=== PATIENT | male | born 1970 | race Caucasian/White ===

== ENCOUNTER 2020-04-24 08:30 | Emergency (ER) | payer OTHER ==
[2020-04-24 08:46] VITALS: BP 146/83; PULSE 87; TEMP 97.8; BMI 32.0
--- OUTSIDE RECORDS SUMMARY | 2020-04-24 08:53 | XMS ---
:1970 Author Organization [facility] Care Team Providers Name Role Phone Lennie Burgess Unavailable [phone] Solange Burgess Unavailable [phone] Rupert Unavailable [phone] Manning Unavailable Unavailable Manning Unavailable Unavailable Manning Unavailable Unavailable Manning Unavailable Unavailable Manning Unavailable Unavailable Manning Unavailable Unavailable Manning Unavailable Unavailable Manning Unavailable Unavailable Manning Unavailable Unavailable Manning Unavailable Unavailable ANDRES CONNER Unavailable Unavailable Ubayawardena Unavailable Unavailable Ubayawardena Unavailable Unavailable Ubayawardena Unavailable Unavailable Ubayawardena Unavailable Unavailable Ubayawardena Unavailable Unavailable Manning Unavailable Unavailable Manning Unavailable Unavailable Manning Unavailable Unavailable Manning Unavailable Unavailable Manning Unavailable Unavailable Manning Unavailable Unavailable Manning Unavailable Unavailable Manning Unavailable Unavailable Manning Unavailable Unavailable Manning Unavailable Unavailable Ringstad Unavailable Unavailable Ringstad Unavailable Unavailable Ringstad Unavailable Unavailable Ringstad Unavailable Unavailable Ringstad Unavailable Unavailable Ringstad Unavailable Unavailable Ringstad Unavailable Unavailable Ringstad Unavailable Unavailable Ringstad Unavailable Unavailable Ringstad Unavailable Unavailable Ringstad Unavailable Unavailable Carrillo Unavailable [phone] Carrillo Unavailable [phone] Re-disclosure Warning The records that you are about to access may contain information from federally- assisted alcohol or drug abuse programs. If such information is present, then the following federally mandated warning applies: This information has been disclosed to you from records protected by federal confidentiality rules (42 CFR part 2). The federal rules prohibit you from making any further disclosure of this information unless further disclosure is expressly permitted by the written consent of the person to whom it pertains or as otherwise permitted by 42 CFR part 2. A general authorization for the release of medical or other information is NOT sufficient for this purpose. The Federal rules restrict any use of the information to criminally investigate or prosecute any alcohol or drug abuse patient.The records that you are about to access may contain highly sensitive health information, the redisclosure of which is protected by Article 27-F of the [facility] Public Health law. If you continue you may haveaccess to information: Regarding HIV / AIDS; Provided by facilities licensed or operated by the [facility] Office of Mental Health; or Provided by the [facility] Office for People With Developmental Disabilities. If such information is present, then the following [facility] mandated warning applies: This information has been disclosed to you from confidential records which are protected by state law. State law prohibits you from making any further disclosure of this information without the specific written consent of the person to whom it pertains, or as otherwise permitted by law. Any unauthorized further disclosure in violation of state law may result in a fine or chcf sentence or both. A general authorization for the release of medical or other information is NOT sufficient authorization for further disclosure. Allergies and Adverse Reactions Type Description Substance Reaction Status Data Source(s ) Propensity to Propensity to Propensity to NEXTG EN ([facility] adverse reactions adverse reactions adverse reactions [facility] (disorder) (disorder) (disorder) Center) Family History Family Member Family Member Family Member Date of Description Data Source(s) Name Gender Status Status Unknown Male Diagnosis 02/21/2012 NEXTGEN ( 12:00:00 AM [facility]ost ne EDT Center) Encounters Encounter Providers Location Date Indications Data Source(s ) Outpatient Attender: CONNER Callaway 05/18/2019 [facility] 06:23[facility]00 Medical Center MINALAdmitter: PM EDT [facility] MINNINIReferrer: CONNER PRIETO [facility] ([facility] /OUT[facility]IENT [facility] 06:23:00 [facility] VISIT, EST PM EDT - Center) 05/18/2019 06:23:00 PM EDT Outpatient 05/18/2019 [facility] 02:23:00 Medical Center PM EDT Outpatient 05/18/2019 [facility] 12:00:00 Medical Center AM EDT Outpatient Attender: Nu Callaway 05/01/2019 [facility] eph VelezAdmitter: 09:57:00 Medical Ce nter Nu AM EDT VelezReferrer: Nu Manning OutpatientOFFICE Attender: [facility] 05/01/2019 NEXTGEN ([facility] 09:57:00 Shawn Medic al VISIT, EST AM EDT - Center) 05/01/2019 09:57:00 AM EDT Outpatient 05/01/2019 [facility] 09:37:00 Medical Center AM EDT Outpatient 05/01/2019 [facility] 12:00:00 Medical Center AM EDT Attender: [facility] 04/28/2019 NEXT EN ([facility] 10:45:00 Shawn Medica l AM EDT - Center) 04/28/2019 10:45:00 AM EDT Attender: [facility] 12/07/2016 NEXTG EN ([facility] 01:31:00 Shawn Medi giles PM EDT - Center) 12/07/2016 01:31:00 PM EDT Attender: [facility] 11/23/2016 NEXTGEN ([facility] 01:19:00 Shawn Medica l PM EDT - Center) 11/23/2016 01:19:00 PM EDT Attender: [facility] 07/08/2013 NEXTGE N ([facility] 05:52:00 Shawn Medic al PM EST - Center) 07/08/2013 05:52:00 PM EST Attender: [facility] 01/05/2013 NEXTGE N ([facility] 03:28:00 [facility] PM EDT - Center) 01/05/2013 03:28:00 PM EDT Attender: [facility] 12/04/2012 NEXTGE N ([facility] 09:10:00 [facility] AM EDT - Center) 12/04/2012 09:10:00 AM EDT Attender: [facility] 11/27/2012 NEXTGE N ([facility] 10:01:00 Shawn [facility]ica l AM EDT - Center) 11/27/2012 10:01:00 AM EDT Attender: [facility] 03/06/2012 NEXTGE N ([facility] 09:32:00 [facility] l AM EDT - Center) 03/06/2012 09:32:00 [facility] NEX [facility]EN ([facility] 08:44:00 Shawn Medica l AM EDT - Center) 02/21/2012 08:44:00 AM EDT Immunizations Vaccine Date Status Description Data Source(s) New in 2011. IIV4 05/01/2019 completed Influenza, Injectable, NEXTGEN ([facility] 12:00:00 AM EDT Quadrivalent [facility]) Source: New Immunization Record New in 2011. 11/23/2016 12:00:00 completed Influenza virus NEXTG EN ([facility] IIV4 AM EDT vaccine, injectable, [facility] Medical quadrivalent, split Center) virus, preservative free, 3 years or older Fluarix Quad [id number] Source: New Immunization Record As of March 1999, a 07/08/2013 12:00:00 completed Hep B (bud lt) NEXTGEN ([facility] 2-dose hepatitis B AM EST Shawn edical schedule for Center) adolescents (11-15 year olds) was FDA approved for Merck's Recombivax HB adult formulation. Use code 43 for the 2-dose. This code should be used for any use of standard adult formulation of hepatitis B vaccine. Source: New Immunization Record IIV3. This vaccine 07/08/2013 12:00:00 completed flu (split) NE XTGEN ([facility] code is one of two AM EST preservative free, 3 [facility] which replace CVX yrs or older Center) 15, influenza, split virus. Source: New Immunization Record As of March 1999, a 01/05/2013 12:00:00 completed Hep B (bud lt) NEXTGEN ([facility] 2-dose hepatitis B AM EDT Shawn edical schedule for Center) adolescents (11-15 year olds) was FDA approved for Merck's Recombivax HB adult formulation. Use code 43 for the 2-dose. This code should be used for any use of standard adult formulation of hepatitis B vaccine. Source: New Immunization Record As of March 1999, a 12/04/2012 12:00:00 completed Hep B (bud lt) NEXTGEN ( 2-dose hepatitis B AM EDT [facility] [place]) adolescents (11-15 year olds) was FDA approved for Merck's Recombivax HB adult formulation. Use code 43 for the 2-dose. This code should be used for any use of standard adult formulation of hepatitis B vaccine. Source: New Immunization Record Tdap 02/21/2012 12:00:00 AM EDT completed Tdap N EXTGEN ([facility]) Source: New Immunization Record Medications Medication Brand Start Product Dose Route [facility] Indications Reaction Description Data Name Date Form Instructions Instructions Source(s) terbinafine terbin .00 ORAL active take 1 NEXTGEN 250 MG Oral afine 2017 {tbl} tablet by ( Tablet HCl 12:00: oral route Mehrdad chatterjee terbinafine 250 mg 00 AM every day Medical HCl 250 mg tablet EDT [place]) tablet Insurance Providers Payer name Policy type Policy ID Covered Covered green party's Policy P sho / Coverage green party ID relationship to Mendez Inf ormation type mendez MEDICAID [id number] SP [id number] O 01 Problems, Conditions, and Diagnoses Code Display Name Description Problem Type Effective Data Sour ce(s) Dates [id number] External External Problem 03/06/2012 NEXTGEN ( hemorrhoids hemorrhoids 12:00:00 AM [facility]) Z71.89 Other specified OTHER SPECIFIED Diagnosis 05/18/2019 [facility] counseling COUNSELING 06:23:00 PM Medical [facility] EDT Z68.30 Body mass index BODY MASS INDEX Diagnosis 05/18/2019 H[facility]io Escobar (BMI) 30.0-30.9, (BMI) 30.0-30.9, 06:23:00 PM [facility] adult ADULT EDT Z00.00 Encounter for ENCNTR FOR Diagnosis 05/18/2019 Mehrdad general adult GENERAL ADULT 06:23:00 PM [facility] medical MEDICAL EXAM W/O EDT examination ABNORMAL FINDINGS without abnormal findings Z71.82 Exercise EXERCISE Diagnosis 05/01/2019 [facility] counseling COUNSELING 09:57:00 [facility]3 Dietary counseling DIETARY Diagnosis 05/01/2019 [facility] and surveillance COUNSELING AND 09:57:00 AM [facility] SURVEILLANCE EDT R39.15 Urgency of URGENCY OF Diagnosis 05/01/2019 [facility] urination URINATION 09:57:00 AM Medical Cente r EDT Z23 Encounter for ENCOUNTER FOR Diagnosis 05/01/2019 [facility] immunization IMMUNIZATION 09:57:00 AM Medical C enter EDT Surgeries/Procedures Procedure Description Date Indications Data Source(s) OFFICE/OUTPATIENT VISIT, 05/18/2019 NEX TGEN ([facility] EST 12:00:00 AM EDT [facility] - 05/18/2019 [place]) 12:00:00 AM EDT Influenza, Injectable, 3 05/01/2019 NEX TGEN ([facility] Yrs Or Older 12:00:00 AM EDT [facility] - 05/01/2019 [place]) 12:00:00 AM EDT Immunization 05/01/2019 NEXTGEN ([facility] Administration 12:00:00 AM EDT [facility] dical - 05/01/2019 [place]) 12:00:00 AM EDT OFFICE/OUTPATIENT VISIT, 05/01/2019 NEX TGEN ([facility] EST 12:00:00 AM EDT [facility] - 05/01/2019 [place]) 12:00:00 AM EDT Results ID Date Data Source [id number] 05/05/2019 09:15:00 AM EDT NEXTG EN ([facility] [id number] [place]) Name Value Range Interpretation Description Data Sup porting Code Source(s) Document(s ) Not Detected Not N.GONORRHOEAE NEXTGEN Detected RNA, TMA ([facility]) This test was performed using the APTIMA COMBO2(R) Assay(GEN-PROBE(R)).For additional information, please refer [email or web address](This link is being provided for informational/educationalpurposes only) ID Date Data Source [id number] 05/05/2019 09:15:00 AM EDT NEXTG EN ([facility] [id number] [place]) Name Value Range Interpretation Description Data Sup porting Code Source(s) Document(s ) Not Detected Not CHLAMYDIA NEXTGEN Detected URINE ([facility]) This test was performed using the APTIMA COMBO2(R) Assay(GEN-PROBE(R)).For additional information, please refer [email or web address]/faq/[email or web address](This link is being provided for informational/educationalpurposes only) ID Date Data Source [id number] 05/05/2019 09:15:00 AM EDT NEXTG EN ([facility] [id number] [place]) Name Value Range Interpretation Code Description Data Davina rce(s) Supporting Document(s ) NON-REACTI NON-REACTI RPR [facility] ([facility]) The Macro-Dillan RPR (Rapid Plasma Reagin) 18mm [place] Card Test is anontreponemal testing procedure for the serologic detection of syphilis. ID Date Data Source [id number] 05/05/2019 09:15:00 AM EDT NEXTG EN ([facility] [id number] [place]) Name Value Range Interpretation Code Description Data Davina rce(s) Supporting Document(s ) 5.7 % 4.2-5.8 HB A1C [facility] ([facility]) For the purpose of screening for the pre sence of diabetes:< 5.8 % Consistent with the absence of diabetes5 .8 - 6.4 % Consistent with increased risk for diabetes(prediabetes)> or = 6.5 % Consistent with diabetesCurrently, no consensus exists for use of hemoglobin A 1cfor diagnosis of diabetes in children.According to [place] Diabetes Association (ADA) guidelines.Hemoglobin A1c <7.0% represents optimal control in non- diabetic patients. Different metrics may apply tospecific patient populations . Standards of medical Care inDiabetes (ADA).

ID Date Data Source [id number] 05/05/2019 09:15:00 AM EDT NEXTG EN ([facility] [id number] [place]) Name Value Range Interpretation Code Description Data Davina rce(s) Supporting Document(s ) NON-REACTI NON-REACTI HIV 1+2 AB [facility]) This test was run using the [place]0 immunodiagnostic System. Theresults of the ZenRoboticss Anti-HIV 1 + 2 assay, in conjunction with otherserological evidenceand clinical information, may be used as an a id in the diagnosis ofinfection with HIV -1 and/or HIV-2 in persons with signs or symptoms of,or at risk for,HIV infection. If the result is Reactive, the result is PRELIMINARY, aconfirmatory test will f ollow, and the Confirmatory Result MUST beconsidered in making a diagnosis related to HIV infection. ID Date Data Source [id number] 05/05/2019 09:15:00 AM EDT NEXTG EN ([facility] [id number] [place]) Name Value Range Interpretation Code Description Data Supporting Source(s) Document(s ) 142 MEQ/L 137-145 SODIUM [facility]) 4.5 MEQ/L 3.5-5.3 POTASSIUM [facility]) 25 MEQ/L 22-30 CARBON DIOXIDE [facility]) 109 MEQ/L 98-107 Above high normal CHLORIDE [facility]) 6.9 G/DL 6.3-8.2 TOTAL PROTEIN [facility]) 1.4 >= 1.0 AG RATIO [facility]) 4.0 G/DL 3.5-5.0 ALBUMIN [facility]) 2.9 G/DL 2.3-3.5 GLOBULIN [facility]) 31 IU/L 7-50 ALT [facility]) 108 IU/L 38-126 ALP [facility]) 33 IU/L 17-59 AST (GOT) [facility]) 129 GFR > 60 eGFR [facility]) Estimated GFR is calculated using the Mo dification of Diet in RenalDisease (MDRD) Study equation, and normalized to 1.73m2 body surfce area.The MDRD study equation should only be used in individuals age 18 orolder. It has not been validated f or the following: women,patients with serious comorbid conditions, or on certain medications, orpersons with extremes of body size, muscle mass, or nutritional status. 99 MG/DL 74-106 GLUCOSE NEXTGEN ([facility]) 15 MG/DL 9-20 BUN NEXTGEN ([facility]) 9.4 MG/DL 8.4-10.2 CALCIUM NEXTGEN ([facility]) 0.7 MG/DL 0.5-1.3 CREATININE NEXTGEN ([facility]) 0.5 MG/DL 0.2-1.3 BILI, TOTAL NEXTGEN ([facility]) ID Date Data Source [id number] 05/05/2019 09:15:00 AM EDT NEXTG EN ([facility] [id number] [place]) Name Value Range Interpretation Code Description Data Davina rce(s) Supporting Document(s ) 50 MG/DL > 60 Below low normal HDL- CHOL NEXTGEN ([facility]) 45 MG/DL < 100 LDL- CALC NEXTGEN ([facility]) 73 MG/DL < 150 TRIGLYCERIDES [facility] ([facility]) 110 MG/DL <200 CHOLESTEROL [facility] ([facility]) ID Date Data Source [id number] 05/05/2019 09:15:00 AM EDT NEXTG EN ([facility] [id number] [place]) Name Value Range Interpretation Code Description Data Davina rce(s) Supporting Document(s ) 110 MG/DL <200 CHOLESTEROL [facility] ([facility]) 73 MG/DL < 150 TRIGLYCERIDES [facility] ([facility]) 50 MG/DL > 60 Below low normal HDL- CHOL [facility] ([facility]) ID Date Data Source [id number] 05/05/2019 09:15:00 AM EDT NEXTG EN ([facility] [id number] [place]) Name Value Range Interpretation Description Data Sup porting Code Source(s) Document(s ) 142 MEQ/L 137-145 [facility]) 109 MEQ/L 98-107 Above high normal CHLORIDE [facility] ([facility]) 6.9 G/DL 6.3-8.2 TOTAL [facility]OTEIN [facility]) 4.0 G/DL 3.5-5.0 ALBUMIN NEXTGEN ([facility]) 25 MEQ/L 22-30 CARBON DIOXIDE NEXTGEN ([facility]) 33 IU/L 17-59 AST (GOT) NEXTGEN ([facility]) 108 IU/L 38-126 ALP NEXTGEN ([facility]) 31 IU/L 7-50 ALT [facility]) 15 MG/DL 9-20 BUN NEXTGEN ([facility]) 99 MG/DL 74-106 GLUCOSE NEXTGEN ([facility]) 0.7 MG/DL 0.5-1.3 CREATININE NEXTGEN ([facility]) 9.4 MG/DL 8.4-10.2 CALCIUM [facility] ([facility]) 0.5 MG/DL 0.2-1.3 BILI, TOTAL [facility] ([facility]) ID Date Data Source [id number] 05/05/2019 09:15:00 AM EDT NEXTG EN ([facility] [id number] [place]) Name Value Range Interpretation Description Data Sup porting Code Source(s) Document(s ) YELLOW YELLOW U COLOR [facility]) CLEAR CLEAR U CLARITY [facility] ([facility]) NEGATIVE NEGATIVE U GLUCOSE [facility] ([facility]) NEGATIVE NEGATIVE U BILIRUBIN [facility] ([facility]) SMALL NEGATIVE U BLOOD [facility] ([facility]) NEGATIVE NEGATIVE U KETONE [facility] ([facility]) 1.020 1.015-1.025 U SP.GRAVITY [facility] ([facility]) 0.2 MG/DL 0.2-1.0 U UROBILINOGEN [facility] ([facility]) 6.0 4.5-8.0 U PH [facility]) NEGATIVE NEGATIVE U PROTEIN [facility] ([facility]) NEGATIVE NEGATIVE U. LEUKOCYTE [facility] ([facility]) NEGATIVE NEGATIVE U NITRITE [facility] ([facility]) 3-5 0-3 U RBC [facility]) 0-2 NONE SEEN U EPITH [facility]) 0-3 0-3 U WBC NEXTGEN ([facility]) ID Date Data Source [id number] 05/05/2019 09:15:00 AM EDT NEXTG EN ([facility] [id number] [place]) Name Value Range Interpretation Code Description Data Davina rce(s) Supporting Document(s ) 7.63 KCUMM 4.4-11.0 WBC [facility] ([facility]) 45.8 % 41.0-53.0 HCT NEXTGEN ([facility]) 5.19 MCUMM 4.4-5.9 RBC [facility]) 15.5 G/DL 13.5-17.5 HGB [facility] ([facility]) 29.9 PG 26.0-34.0 MCH [facility]) 88.2 FL 80.0-100.0 MCV [facility] ([facility]) 13.6 % 11.5-14.5 RDW [facility] ([facility]) 33.8 G/DL 32.0-37.0 MCHC [facility]) 201 KCUMM 130-400 PLT [facility] ([facility]) 11.5 FL 8.0-11.0 Above high normal MPV [facility] 0.0 /100 0 NRBC% [facility] ([facility]) New parameters included in the report o f automated CBCNRBC(%/#) Is a direct count of Nucleated Red Blood cell, and will bereported with every CBC count. WBC will automatically be corrected withthe presence of NRBC. 0.00 KCUMM 0.0 NRBC ABS# [facility] ([facility]) ID Date Data Source [id number] 05/05/2019 09:15:00 AM EDT NEXTG EN ([facility] [id number] [place]) Name Value Range Interpretation Description Data Sup porting Code Source(s) Document(s ) NEGATIVE NEGATIVE U GLUCOSE [facility] ([facility]) CLEAR CLEAR U CLARITY [facility] ([facility]) NEGATIVE NEGATIVE U BILIRUBIN [facility] ([facility]) NEGATIVE NEGATIVE U KETONE NEXTGEN ([facility]) 1.020 1.015-1.025 U SP.GRAVITY NEXTGEN ([facility]) SMALL NEGATIVE U BLOOD NEXTGEN ([facility]) 6.0 4.5-8.0 U PH NEXTGEN ([facility]) NEGATIVE NEGATIVE U NITRITE NEXTGEN ([facility]) NEGATIVE NEGATIVE U PROTEIN NEXTGEN ([facility]) 0.2 MG/DL 0.2-1.0 U UROBILINOGEN NEXTGEN ([facility]) NEGATIVE NEGATIVE U. LEUKOCYTE [facility] ([facility]) ID Date Data Source [id number] 05/05/2019 09:15:00 AM EDT NEXTG EN ([facility] [id number] [place]) Name Value Range Interpretation Code Description Data Davina rce(s) Supporting Document(s ) 1.11 NG/ML < 4.0 PSA [facility] ([facility]) Method: Immunometric luminescent reactio n on the iBios Vitros 5600.PSA in a given patient sample deter mined with tests from differentmanufacturers can vary due to differences in test meth ods and reagentspecificity and cannot be used interchangeably.PSA levels should not be interpreted as absolute evidence of the presenceor absence of malignant disease. Reference Range: < 4.0 ng/mL

Procedure Social History Code Duration Value Status Description Data Source(s ) Caffeine Use 05/18/2019 completed NEXTGEN ([facility] 12:00:00 AM [facility]) 05/18/2019 Occasional completed Occasional NEXTGEN ([facility] 12:00:00 AM cigarette smoker cigarette smoker J [facility]) Smoking 05/18/2019 Unknown if ever completed Unknown if ever NEXT GEN ([facility] 12:00:00 AM smoked smoked [facility]) Alcohol Use completed NEXTGEN ([facility]) Smoking Unknown if ever completed Unknown if ever [facility] smoked smoked Medical Center Vital Signs ID Date Data Source UNK Name Value Range Interpretation Code Description Data Source(s) Oxygen saturation 97 % 97 % NEXTGEN ([facility] in Arterial blood [facility] by Pulse oximetry Center) Body mass index 30.34 kg/m2 Overweight 30.34 kg/m2 NEXTGEN ([facility] (BMI) [Ratio] [facility]) Respiratory rate 19 /min 19 /min [facility] Body temperature 36.33 [place] 36.33 [place] [facility] ([facility]) Heart rate 85 /min 85 /min NEXTGEN ([facility]) Diastolic blood 71 mm[Hg] 71 mm[Hg] NEXTGEN ( [facility]) Systolic blood 136 mm[Hg] 136 mm[Hg] NEXTGEN ([facility]) Body weight 78.925 kg 78.925 kg [facility] ([facility]) Body height 161.29 cm 161.29 cm [facility] ([facility]) Oxygen saturation 99 % 99 % [facility] ([facility] Arterial blood [facility]) Body mass index 30.86 kg/m2 Overweight 30.86 kg/m2 [facility] ([facility] (BMI) [Ratio] [facility]) Respiratory rate 18 /min 18 /min [facility] ([facility]) Body temperature 36.39 [place] 36.39 [place] [facility] ([facility]) Heart rate 84 /min 84 /min [facility] ([facility]) Diastolic blood 81 mm[Hg] 81 mm[Hg] [facility] ( [facility]) Systolic blood 136 mm[Hg] 136 mm[Hg] [facility] ([facility] Body weight 80.286 kg 80.286 kg [facility] ([facility]) Body height 161.29 cm 161.29 cm [facility] ([facility]) Patient Treatment Plan of Care Planned Activity Planned Date Details Description Data Source (s) terbinafine 250 MG Oral 12/07/2016 12:00:00 [facility] ([facility])
[2020-04-24] MEDS ORDERED: DIPHTH,PERTUSS(ACELL),TET 0.5 ML DISP.SYRIN IM ONE ×2 (08:55→08:57)
--- NOTE | 2020-04-24 09:20 | PDOC ---
History of Present Illness - General Chief Complaint: Laceration Stated Complaint: FINGER INJURY Time Seen by Provider: 04/24/20 08:40 History Source: Patient Exam Limitations: Clinical Condition - History of Present Illness Initial Comments: 04/24/20 09:17 Patient with no significant past medical history present with complaint of laceration to right index finger status post accidentally slamming car door on the right index finger this morning. Denies numbness or difficulty moving right index finger. Denies decreased sensation to right index finger. Denies previous injury to right index finger. Patient does not recall last tetanus vaccine. Patient did not take anything for symptoms. Patient not on any anticoagulative therapy Timing/Duration: reports: just prior to arrival Location: reports: hands (right index finger laceration) Past History - Medical History Allergies/Adverse Reactions: Allergies Allergy/AdvReac Type Severity Reaction Status Date / Time No Known Allergies Allergy Verified 04/24/20 08:33 Home Medications: Ambulatory Orders Amox-Tr/K Cl [Augmentin - 875Mg Tablet] 1 tab PO BID #14 tablet 04/24/20 Ibuprofen 600 mg PO Q8H PRN #20 tablet 04/24/20 COPD: No - Immunization History Immunization Up to Date: No - Psycho-Social/Smoking History Smoking History: Current some day smoker Have you smoked in the past 12 months: Yes Number of Cigarettes Smoked Daily: 1 Information on smoking cessation initiated: No - Substance Abuse Hx (Audit-C & DAST Scrn) How often the patient has a drink containing alcohol: Never Score: In Men: 4 or > Positive; In Women: 3 or > Positive: 0 Screen Result (Pos requires Nsg. Audit-10AR): Negative In the last yr the pt used illegal drug/Rx for NonMed reason: No Score: Yes response is considered Positive: 0 Screen Result (Positive result requires Nsg. DAST-10): Negative Review of Systems - Review of Systems Able to Perform ROS?: Yes Is the patient limited Upper Sorbian proficient: No Constitutional: No: Chills, Fever, Weakness HEENTM: No: Symptoms Reported Respiratory: No: Symptoms reported, See HPI, Cough, Orthopnea, Shortness of Breath, SOB with Exertion, SOB at Rest, Stridor, Wheezing, Productive cough, Hemoptysis, Other Cardiac (ROS): No: Symptoms Reported, See HPI, Chest Pain, Edema, Irregular Heart Rate, Lightheadedness, Palpitations, Syncope, Chest Tightness, Other ABD/GI: No: Symptoms Reported Musculoskeletal: Yes: Symptoms Reported, See HPI, Muscle Pain (right index finger pain) Integumentary: Yes: Symptoms Reported, See HPI, Other (laceration to right index finger) Neurological: No: Numbness, Paresthesia, Tingling, Weakness All Other Systems: Reviewed and Negative *Physical Exam - Vital Signs Last Vital Signs Temp Pulse Resp BP Pulse Ox 97.8 F 87 20 146/83 98 04/24/20 08:33 04/24/20 08:33 04/24/20 08:33 04/24/20 08:33 04/24/20 08:33 - Physical Exam 04/24/20 09:22 GENERAL: Well developed, well nourished. Awake and alert. No acute distress. PULMONARY: No evidence of respiratory distress. MUSCULOSKELETAL : 3 cm horizontal deep laceration over DIP of right index finger on the plantar aspect with minimal bleeding. Normal sensory to distal phalange of right index finger and holding finger. Few range of motion of right index finger. Normal strength to right index finger. SKIN: Warm and dry. Normal capillary refill. 3 cm horizontal deep laceration over DIP of right index finger on the plantar aspect with minimal bleeding. NEUROLOGICAL: Alert, awake, appropriate. No motor deficits in the lower extremities. Gait is normal without ataxia. PSYCHIATRIC: Cooperative. Good eye contact. Appropriate mood and affect. General Appearance: Yes: Nourished, Appropriately Dressed. No: Apparent Distress Procedures - Laceration/Wound Repair Right Anterior Distal Plantar Finger 2nd digit Wound Length: 2.6 to 5.0 cm Wound Explored: clean Wound's Depth, Shape: superficial, linear Irrigated w/ Saline: Yes Betadine Prep: Yes Anesthesia: 1% Lidocaine Amount of Anesthetic (ccs): 2 Wound Repaired With: Sutures Suture Size/Type: 4:0, nylon Number of Sutures: 5 Layer Closure: No Sterile Dressing Applied: Yes Splint Applied: Yes Sling Applied: No Progress: 04/24/20 09:21 Wound cleaned with Betadine and infiltrated with 1.5 cc of 1% lidocaine. Wound irrigated with normal saline. Wound closed with five interrupted 4-0 nylon sutures with good approximation. Hemostasis achieved. Bacitracin applied to wound and wound covered adhesive bandage. Patient tolerated procedure well. Tetanus vaccine given. ED Treatment Course - RADIOLOGY Radiology Studies Ordered: Category Date Time Status FINGER(S) RIGHT [RAD] Stat Radiology 04/24/20 08:55 Ordered Medical Decision Making - Medical Decision Making 04/24/20 09:18 Patient with no significant past medical history present with complaint of laceration to right index finger status post accidentally slamming car door on the right index finger this morning. Denies numbness or difficulty moving right index finger. Denies decreased sensation to right index finger. Denies previous injury to right index finger. Patient does not recall last tetanus vaccine. Patient did not take anything for symptoms. Patient not on any anticoagulative therapy Exam significant for 3 cm horizontal deep laceration over DIP of right index finger on the plantar aspect with minimal bleeding. Normal sensory to distal phalange of right index finger and holding finger. Few range of motion of right index finger. Normal strength to right index finger. Wound cleaned with Betadine and infiltrated with 1.5 cc of 1% lidocaine. Wound irrigated with normal saline. Wound closed with five interrupted 4-0 nylon sutures with good approximation. Hemostasis achieved. Bacitracin applied to wound and wound covered adhesive bandage. Patient tolerated procedure well. Tetanus vaccine given. X-ray of right index finger ordered to rule out fracture. Treat based on imaging results 04/24/20 09:33 X-ray of right index finger shows no acute fracture or dislocation. Patient stable for discharge home Augmentin antibiotic for infection prophylaxis and Motrin PRN for pain with follow-up with a hand specialist as needed and also follow-up in 1 week for suture removal Discharge - Discharge Information Problems reviewed: Yes Clinical Impression/Diagnosis: Crushing injury of right index finger, initial encounter Laceration of right index finger w/o foreign body w/o damage to nail Qualifiers: Encounter type: initial encounter Qualified Code(s): S61.210A - Laceration without foreign body of right index finger without damage to nail, initial encounter Condition: Stable Disposition: HOME - Admission No - Additional Discharge Information Prescriptions: Amox-Tr/K Cl [Augmentin - 875Mg Tablet] 1 tab PO BID #14 tablet Ibuprofen 600 mg PO Q8H PRN #20 tablet PRN Reason: pain - Follow up/Referral Referrals: Dru Khalil MD [Staff Physician] - Obed Lu MD [Staff Physician] - - Patient Discharge Instructions Patient Printed Discharge Instructions: DI for Laceration Repair Additional Instructions: Keep wound clean and dry for the next 24 hours. Apply bacitracin to wound twice a day. Take prescribed antibiotics and finish it. Take prescribed Motrin as needed for pain. Follow-up in 1 week for suture removal. Follow-up referred hand specialist if reduced sensation to finger or persistent pain to finger - Post Discharge Activity
== END 2020-04-24 09:30 | disposition home or self-care (01) ==
LOC: JERFT 08:30 → JER 08:30 → JERFT 09:30
PROC: 3E0234Z Introduction of Serum, Toxoid and Vaccine into Muscle, Percutaneous Approach (ICD-10-PCS; principal; 2020-04-24)
DX: S67.190A Crushing injury of right index finger, initial encounter (principal); S61.210A Laceration without foreign body of right index finger without damage to nail, initial encounter
CPT/HCPCS: 73140-TC-RT-FY; 90471; 90715; 99284-25